=== PATIENT | male | born 1945 | race Caucasian/White ===

== ENCOUNTER 2022-03-13 17:54 | Emergency (ER) | payer MEDICARE, BC ==
[~2022-03-13] VITALS: Ht 177.8 cm; Wt 72.6 kg
[2022-03-13] MEDS ORDERED: SIMV10TA98 PO (18:32)
[2022-03-13] MEDS ORDERED: PANT40TA49 PO (18:32)
[2022-03-13] MEDS ORDERED: ONDANSETRON ODT 4 MG TAB.RAPDIS SL ONE (18:45)
[2022-03-13] MEDS ORDERED: LORA-259 PO (18:47)
[2022-03-13] MEDS ORDERED: ONDA4TAB5 PO (18:47)
[2022-03-13] MEDS ORDERED: MECL-159 PO (18:47)
[2022-03-13] MEDS ORDERED: ONDANSETRON ODT 4 MG TAB.RAPDIS ONE (18:51)
[2022-03-13 18:52] VITALS: BP 140/80
--- NOTE | 2022-03-13 18:52 | NUR ---
Patient discharged to home in stable condition. Written and verbal after care instructions given. Patient verbalizes understanding of instructions. Stressed follow up or return to ER for worsening s/s.
== END 2022-03-13 18:53 | disposition home or self-care (01) ==
LOC: ER 17:54
DX: R42 Dizziness and giddiness (principal); R00.0 Tachycardia, unspecified; K21.9 Gastro-esophageal reflux disease without esophagitis; E78.00 Pure hypercholesterolemia, unspecified; Z79.899 Other long term (current) drug therapy
CPT/HCPCS: 93005; A4663; Q0162